=== PATIENT | female | born 1970 | race Caucasian/White ===

== ENCOUNTER 2018-12-08 08:56 | Emergency (ER) | payer OTHER ==
[~2018-12-08] VITALS: Ht 170.2 cm; Wt 59.4 kg
[~2018-12-08 08:56] MED LIST: NOHOMEMEDICATIONS; PROVENTIL HFA6.7 G1 INH; ROBAFEN AC SYR120 ML PO; ZPAK PO
[2018-12-08 11:22] LABS: HEMATOCRIT 37.5 % (37.0-47.0); HEMOGLOBIN 12.8 gm/dL (12.0-15.0); MCH 36.7 pg (26.0-34.0); MCHC 34.2 g/dL (28.0-37.0); MCV 107.2 fL (80.0-100.0); RDW 12.9 % (10.5-14.5)
[2018-12-08 11:32] LABS: CALCIUM 9.6 mg/dL (8.5-10.1); CREATININE 0.6 mg/dL (0.6-1.0); POTASSIUM 3.7 mmol/L (3.5-5.1)
[2018-12-08 11:39] LABS: ALBUMIN 3.8 g/dL (3.4-5.0); TOTAL BILIRUBIN 2.1 mg/dL (<0.1-1.0); TOTAL PROTEIN 7.6 g/dL (6.4-8.2)
[2018-12-08 12:37] LABS: ABSOLUTE NEUTROPHILS 3.3 thou/uL (1.4-8.2); MACROCYTES 2+; PLATELET COUNT 94 thou/uL (150-400); PLATELET ESTIMATE SLIGHTLY DECREASED
[2018-12-08 12:45] VITALS: BP 107/67
== END 2018-12-08 12:47 | disposition home or self-care (01) ==
LOC: ER 08:56
PROVIDERS: Emergency Medicine
DX: K76.0 Fatty (change of) liver, not elsewhere classified (principal); R74.8 Abnormal levels of other serum enzymes; R74.0 Nonspecific elevation of levels of transaminase and lactic acid dehydrogenase [LDH]; Z90.49 Acquired absence of other specified parts of digestive tract